=== PATIENT | male | born 1970 ===

== ENCOUNTER 2019-03-23 07:46 | Day surgery (SDC) | payer BC, MEDICAID ==
[~2019-03-23 07:46] MED LIST: Tetracaine 0.5% Ophth (OR ONLY) ONE; Tobramycin/Dexamethasone OPHT OINT ONE
[2019-03-23] MEDS ORDERED: Lidocaine/Epinephrine 1% 1:100000 10 ML IJ ONE (07:53)
[2019-03-23] MEDS ORDERED: Lidocaine Hydrochloride 0 ML INJ ONE (07:53)
[2019-03-23] MEDS ORDERED: Lidocaine 2% Jelly (Uro-Jet) ONE (07:55)
[2019-03-23 08:50] VITALS: BMI 27.3
[2019-03-23 09:02] VITALS: BP 111/71; PULSE 67; RESP 18; TEMP 97.8; O2SAT 98
--- NOTE | 2019-03-27 05:33 | OP ---
PROCEDURE DATE: 03/23/2019 PREOPERATIVE DIAGNOSIS: Chalazion, left upper lid. POSTOPERATIVE DIAGNOSIS: Chalazion, left upper lid. PROCEDURE: Excision of chalazion, left upper lid. ANESTHESIA: Local. DESCRIPTION OF PROCEDURE: The patient was brought to the operating room and superior peribulbar block with 1% lidocaine with epinephrine was achieved, approximately 3 mL were used. The patient was then prepped and draped in the usual sterile fashion for surgery on the left eye. A chalazion clamp was placed over the chalazion. The lid was everted and a cruciate incision was made into the chalazion, which was drained and curetted. A Megan scissors and 0.34 forceps was used to excise the chalazion from the left upper lid through the conjunctival incision. The chalazion clamp was then removed. Pressure was applied until good hemostasis was noted. TobraDex ointment was sprayed on to the eye and pressure patch was placed onto the lid and the patient was taken from the operating room in excellent condition. Magan Pisano MD
== END 2019-03-23 11:24 | disposition home or self-care (01) ==
LOC: C.SDS 07:46
PROVIDERS: ATTEND Ophthalmology
DX: H00.14 Chalazion left upper eyelid (principal)